=== PATIENT | male | born 2000 | race Hispanic/Latino ===

== ENCOUNTER 2022-05-16 19:35 | Emergency (ER) | payer OTHER, SELFPAY ==
[2022-05-16 19:36] VITALS: BP 147/83; PULSE 95; RESP 18; TEMP 37.2; O2SAT 98; BMI 22.7
--- NOTE | 2022-05-16 20:13 | EDS_ITS ---
HPI History of Present Illness Chief Complaint: Upper Extremity Injury Detail of Chief Complaint: Left shoulder injury Informant: patient Narrative Narrative: Patient presents the emergency department with a left shoulder injury occurred while swimming. Patient states that he was doing a stroke when he felt like the shoulder popped out of socket. Patient states that a couple years back he had an injury to the same shoulder and was told he had a tear in his labrum. Patient thinks he had an MRI and [place]. Patient denies any other injuries. Patient is right-hand dominant. [facility] Medical History (Updated 05/16/22 @ 20:[address] Juancarlos Champion, DO) Acetabular labrum tear Allergy/AdvReac Type Severity Reaction Status Date / Time No Known Allergies Allergy Verified 05/16/22 19:38 Social History Smoking Status: Unknown if ever smoked ROS ROS ED Review of Systems ROS Unobtainable: other Constitutional Constitutional ED: Reports lethargy; Denies chills, fever(s), sweats or weight loss Eyes Eyes: Denies blurry vision, change in vision or diplopia ENT ENT ED: Denies rhinorrhea or sore throat Cardiovascular Cardiovascular: Denies chest pain, orthopnea or racing heartbeat Respiratory/Chest Respiratory/Chest: Denies cough, dyspnea, dyspnea on exertion, orthopnea or sputum Gastrointestinal Gastrointestinal: Denies abdominal pain, diarrhea, nausea or vomiting Genitourinary Genitourinary ED: Denies dysuria, hematuria or urinary frequency Musculoskeletal Musculoskeletal: Reports other Details: Left shoulder injury/pain ; Denies arthralgias, back pain, myalgias or neck pain Integumentary Denies abscess, Abrasions or rash Neurologic Neurologic: Denies headache(s) or weakness Psychiatric Psychiatric: Denies anxiety, depression or suicidal thoughts Endocrine Endocrinology: Denies polydipsia, polyphagia or polyuria Hematologic/Lymphatic Hematologic/Lymphatic: Denies easy bleeding, easy bruising or lymphadenopathy Allergic/Immunologic Allergic/Immunologic ED: Denies mouth swelling, tongue swelling or urticaria EXAM Physical Exam Const Vital Signs: 05/16/22 19:36 Temperature 99.0 F Temperature Source Temporal Pulse Rate 95 Respiratory Rate 18 Blood Pressure 147/83 H Blood Pressure Mean 104 Pulse Ox 98 Oxygen Delivery Method Room Air Positive well nourished and well developed General Appearance ED: well developed and NAD HEENT Reports TM's clear and moist mucous membranes normocephalic and atraumatic; Negative for trauma or tenderness Tympanic Membrane ED: Yes TM's clear Eyes PERRL and EOMs intact bilaterally General Eye ED: Negative for pale conjunctiva or scleral icterus Neck no lymphadenopathy, supple and no JVD General: Negative for tenderness Chest Wall inspection of chest normal and palpation of chest normal Chest: Negative for tenderness Resp normal respiratory effort and clear to auscultation bilaterally Effort and Inspection: Negative for respiratory distress or pain with movement Auscultation: Negative for rhonchi, wheezes or diminished lung sounds Cardio regular rate, regular rhythm, S1 normal heart sound, S2 normal heart sound and no murmurs Peripheral Pulses: pulses 2+ throughout GI normal to inspection, nondistended, normoactive bowel sounds, soft to palpation, non-tender, non-distended and no masses Back/Spine no CVA tenderness and no thoracic nor lumbar tenderness Extremity normal to inspection Extremity Narrative: Left shoulder-patient does hold the arm abducted and there is an obvious sulcus sign noted. He does not want to rotate at the glenohumeral joint. He is neurovascular intact distally. General Extremety ED: Negative for edema General Extremity: Negative for edema Neuro oriented x3, CN's II-XII intact bilaterally, no sensory deficits noted and gait normal Sensorium / Orientation: awake, alert, oriented to person, oriented to place and oriented to time Motor Exam: strength 5/5 throughout and strength abnormal Psych mental status grossly normal Skin no rashes or lesions noted and no wounds MDM MDM MDM Narrative Medical decision making narrative: Nursing staff had established an IV. I offered the patient sedation for reduction of suspected shoulder dislocation and x-rays first. I also discussed with him possibly attempting to reduce this without any medication. Patient agreed to attempt reduction without medication. I was able to gently externally rotate his arm above his head and immediately there was a click and the shoulder reduced back in the place. Patient had immediate pain relief. Patient will be given a sling and referral to orthopedics. He will stick ibuprofen and Tylenol for discomfort. He is advised not to swim or perform activities that would require him to lift his arm above his head as this shoulder could be unstable an d could easily dislocate again. Radiography Diagnostic Testin view x-rays of the left shoulder obtained interpreted by myself as no acute fractures or dislocations. Official report from radiology will be pending. Discharge Plan Triage Chief Complaint: Upper Extremity Injury ED Provider: Juancarlos Champion Dx/Rx/DC Orders Clinical Impression: Anterior dislocation of left shoulder Instructions: ED Dislocation: Shoulder (Reduced) Primary Care Provider: Care Physician,No Primary Referrals: Dawood Corona DO [Med Staff - Active Staff] - 3-5 Days NOT,DEFINED [Non-Staff] - Disposition Disposition: Home, Self Care
--- NOTE | 2022-05-16 20:24 | RAD_ITS ---
STUDY: X-RAY - LEFT SHOULDER REASON FOR EXAM: Male, 21 years old. Shoulder pain while swimming. Question dislocation. TECHNIQUE: 2 view(s) of the shoulder. COMPARISON: None. FINDINGS: Normal glenohumeral articulation. Normal acromioclavicular joint. Normal acromion. There is no acute fracture, dislocation or destructive osseous pathology. Normal humeral head and visualized proximal humerus. The soft tissue structures are unremarkable. Normal visualized pulmonary apex. RAD/Shoulder min 2 Views IMPRESSION: Normal x-ray examination of the left shoulder. Electronically Signed: Alejandro Lamb DO at 20:49 EDT ,
[2022-05-16 20:36] VITALS: RESP 16
== END 2022-05-16 20:52 | disposition home or self-care (01) ==
PROVIDERS: Emergency Provider Emergency Medicine; Visit Provider Emergency Medicine
DX: S43.015A Anterior dislocation of left humerus, initial encounter (principal); X50.1XXA Overexertion from prolonged static or awkward postures, initial encounter; Y93.11 Activity, swimming; Y99.8 Other external cause status
CPT/HCPCS: 23650; 73030; 99284; A4216

== ENCOUNTER 2023-02-27 23:22 | Emergency (ER) | payer OTHER, SELFPAY ==
[2023-02-27 23:23] VITALS: BP 130/75; PULSE 98; RESP 16; TEMP 36.2; O2SAT 98; BMI 22.8
--- NOTE | 2023-02-28 01:41 | EDS_ITS ---
HPI History of Present Illness Chief Complaint: Laceration Narrative Narrative: 22-year-old male presenting with laceration to the volar surface of the right middle finger. Patient states this occurred on glass. No active bleeding. He has multiple other small superficial abrasions on the index finger, ring finger. Tetanus is up-to-date. He does not have any significant pain. He wants to make sure that there is no foreign bodies retained/glass retained in his hand. No numbness or tingling. PFSH PFSH Medical History Acetabular labrum tear Home Medications NK 02/27/23 [History Last Taken Unknown] Allergy/AdvReac Type Severity Reaction Status Date / Time No Known Allergies Allergy Verified 02/27/23 23:23 Social History Smoking Status: Unknown if ever smoked ROS ROS ED Constitutional Constitutional ED: Denies chills, fever(s) or sweats Eyes Eyes: Denies blurry vision or change in vision ENT ENT ED: Denies ear pain or sore throat Cardiovascular Cardiovascular: Denies chest pain, palpitations or racing heartbeat Respiratory/Chest Respiratory/Chest: Denies cough, dyspnea or sputum Gastrointestinal Gastrointestinal: Denies abdominal pain, constipation, diarrhea, nausea or v omiting Genitourinary Genitourinary ED: Denies dysuria, hematuria or urinary frequency Musculoskeletal Musculoskeletal: Denies arthralgias, myalgias or neck pain Integumentary Reports Abrasions and other Details: Laceration ; Denies abscess or rash Neurologic Neurologic: Denies headache(s), paresthesias or weakness Psychiatric Psychiatric: Denies anxiety, depression, suicidal ideation or suicidal thoughts Endocrine Endocrinology: Denies polydipsia or polyuria EXAM Physical Exam Const Vital Signs: 02/27/23 23:23 Temperature 97.1 F L Temperature Source Temporal Pulse Rate 98 Respiratory Rate 16 Blood Pressure 130/75 H Blood Pressure Mean 93 Pulse Ox 98 Positive well nourished HEENT Reports moist mucous membranes Eyes PERRL Resp normal respiratory effort Cardio regular rate and regular rhythm Neuro oriented x3 and CN's II-XII intact bilaterally Sensorium / Orientation: alert Motor Exam: strength 5/5 throughout Skin Skin Narrative: Right hand: Volar surface of middle finger between the PIP and DIP there is a horizontal laceration approximately 2 cm which is well approximated and no active bleeding. No foreign bodies are palpated. Minimal tenderness to palpation. There are multiple superficial abrasions overlying the index finger, ring finger, pinky. These are punctate. There is a small punctate wound between in the intertriginous space between the pinky and the ring finger on the right hand which is mildly weeping. No foreign bodies are palpated MDM MDM MDM Narrative Medical decision making narrative: Patient has a 2 cm laceration to the volar surface of the right middle finger w hich does not appear to be sutured. This was cleaned and dressed in place. While was examining him there is a punctate wound at the between the intertriginous space of the ring finger and pinky finger of the right hand which is widely weeping. Direct pressure was applied to this and the bleeding stopped. Tetanus immunization is up-to-date. I do not believe he has any foreign bodies. We did soak his hand extensively in warm soapy water and irrigated it. His hand was redressed and bacitracin was applied. Return precautions were discussed. Wound care discussed with him as well. Discharged home in stable condition. Impression: 1. 2 cm middle finger laceration 2. Multiple superficial abrasions right hand Discharge Plan Triage Chief Complaint: Laceration ED Provider: Jose Salcido Dx/Rx/DC Orders Instructions: ED Laceration Small or ... Prescriptions: No Action NK Primary Care Provider: Care Physician,No Primary Referrals: Care Physician,No Primary [Primary Care Provider] - Disposition Disposition: Home, Self Care
== END 2023-02-28 02:00 | disposition home or self-care (01) ==
PROVIDERS: Emergency Provider Student in an Organized Health Care Education/Training Program; Visit Provider Student in an Organized Health Care Education/Training Program
DX: S61.212A Laceration without foreign body of right middle finger without damage to nail, initial encounter (principal); S60.410A Abrasion of right index finger, initial encounter; S60.414A Abrasion of right ring finger, initial encounter; S60.416A Abrasion of right little finger, initial encounter; W25.XXXA Contact with sharp glass, initial encounter
CPT/HCPCS: 99282